=== PATIENT | male | born 1980 | race Caucasian/White ===

== ENCOUNTER 2018-03-06 16:03 | Emergency (ER) | payer BC, OTHER ==
--- NOTE | 2018-03-06 16:05 | ER Report ---
History and Physical Time Seen By MD: 16:05 HPI/ROS CHIEF COMPLAINT: cough, fever HISTORY OF PRESENT ILLNESS: Pt daughter and have been sick. Pt started with symptoms on . Pt states on had headache, fever and chils. Pt states yesterday started with productive cough and wheezing. pt has asthma. had been using his rescue inhaler and advair disc. Pt having trouble sleeping at night due to cough. Pts has been making him green tea at night since he feels the caffiene helps with his cough and wheezing. Pt went to [facility] urgent care yesterday and was given dexamethasone 8mg which he just took today. Pt not feeling any better. Using motrin 400mg for symptoms of fever and chills. Last dose was 130pm. REVIEW OF SYSTEMS: Constitutional: + fever, + chills. Eyes: No discharge. ENT: No sore throat. Cardiovascular: No chest pain, no palpitations. Respiratory: + cough, + shortness of breath. Gastrointestinal: No abdominal pain, no vomiting. Genitourinary: No hematuria. Musculoskeletal: No back pain. Skin: No rashes. Neurological: + headache. Allergies: Coded Allergies: shellfish derived (Verified Allergy, Severe, 03/06/18) Home Meds Reported Medications Albuterol Sulfate (VENTOLIN HFA) 18 Gm Inh, 1-2 PUFF INH 3-4XD, INH 03/06/18 Fluticasone/Salmeterol (ADVAIR 250-50 DISKUS) 1 Each Disk.w.dev, 1 EACH IH QDAY 03/06/18 Losartan/Hydrochlorothiazide (LOSARTAN-HCTZ 100-12.5 MG TAB) 1 Each Tablet, 1 EACH PO QDAY 03/06/18 Past Medical/Surgical History pmhx: asthma, htn Pshx; noncontribuitory Reviewed Nurses Notes: Yes Hx Smoking: No Hx Alcohol Use: Yes (rarely) Constitutional Vital Sign - Last 24 Hours 03/06/18 03/06/18 03/06/18 16:08 16:26 16:26 Temp 99.6 Pulse 97 96 Resp 24 18 B/P (MAP) 142/84 Pulse Ox 93 94 O2 Delivery Room Air Room Air Physical Exam General Appearance: The patient is alert, has no immediate need for airway protection and no signs of toxicity. Eyes: Pupils equal and round no pallor or injection, EOMI ENT: no pharyngeal erythema or exudates, Mucous membranes are moist, TM are nl b/l Respiratory: There are no retractions, + rhonchi b/l with Cardiovascular: Regular rate and rhythm. pulses are equal and symmetrical Gastrointestinal: Abdomen is soft and non tender, no masses, bowel sounds normal, no guarding, no rigidity or rebound Neurological: Cranial nerves II-XII grossly intact, no sensory or motor loss Skin: Warm and dry, no rashes. Musculoskeletal: Neck is supple non tender, no vertebral tenderness Extremities are nontender, non swollen and have full range of motion. DIFFERENTIAL DIAGNOSIS: After history and physical exam differential diagnosis was considered for bronchitis, allergic rhinitis, pneumonia Medical Decision Making ED Course/Re-evaluation ED Course Check xray 03/06/2018 4:55:18 pm PT feeling much better after the breathing treatment. Decision to Disposition Date: Mar 06, 2018 Decision to Disposition Time: 16:55 Depart Departure Latest Vital Signs Vital Signs Date Time Temp Pulse Resp B/P (MAP) Pulse Ox O2 Delivery O2 Flow Rate FiO2 03/06/18 16:26 96 18 03/06/18 16:26 94 Room Air 03/06/18 16:08 99.6 142/84 Impression: Primary Impression: Bronchitis Condition: Improved Disposition: HOME OR SELF-CARE Referrals: ABHISHEK SERRANO (PCP) 2 Days New Scripts Promethazine HCl/Codeine (Prometh-Codein 6.25-10 mg/5 ml) 5 Ml Syrup 5 MG PO Q4-6H Y for COUGH, #120 ML Prov: ERIC PARKER DO 03/06/18 Azithromycin (Z-PACK) 250 Mg Tablet 250 MG PO QDAY, #6 DOSE-PACK 2 pills today then one pill once a day for 4 days. Prov: ERIC PARKER DO 03/06/18 Patient Instructions: Acute Bronchitis (GEN) Additional Instructions: Zithromax 500mg once a day today then 250mg once a day starting tomorrow. Phenergan with codiene one tsp every 4 hours as needed for cough. You can use your rescue inhaler 2 puffs every 4 hours as needed for cough, wheeze or shortness of breath. Follow up with your family doctor. Return as needed. ERIC PARKER DO Mar 06, 2018 16:05
[2018-03-06] MEDS ORDERED: LOSA-57 PO (16:16)
[2018-03-06] MEDS ORDERED: ALB18R INH (16:16)
[2018-03-06] MEDS ORDERED: FLUT1DIS28 IH (16:16)
[2018-03-06] MEDS ORDERED: ACETAMINOPHEN 325 MG TAB PO ONE (16:20)
[2018-03-06] MEDS ORDERED: CHLORPH/HYDROCOD SUSP CR 5 ML PO ONE (16:20)
[2018-03-06] MEDS ORDERED: ALBUTEROL/IPRATROPIUM 3 ML NEB NEB ONE (16:25)
--- NOTE | 2018-03-06 16:45 | RADIOLOGY IMAGING REPORT ---
FACILITY: [facility] PATIENT NAME: Kolton Bethea : 1980 MR: [id number] V: [id number] EXAM DATE: ORDERING PHYSICIAN: ERIC PARKER [place]CHN[place] [facility] [place] Kolton Bet[place] : 1980 Visit/Account:[id number] Date of Sevice: 03/06/2018 Technique: CHEST PA AND LAT HISTORY: cough, fever Comparison studies: None FINDINGS: Noted are linear right middle lobe and left lower lobe opacities. Prominence of the centra l bronchopulmonary vasculature as well as central peribronchial thickening is noted. The cardiac janeth houette is unremarkable. IMPRESSION: 1. Multilobar linear opacities likely representing atelectasis and/or scarring. 2. Mild prominence of the central bronchopulmonary vasculature as well as central peribronchial thic kening. These findings can be seen in the setting of bronchitis, asthma or tobacco usage. Report Dictated By: Soren Bolden DO at 03/06/2018 4:38 PM Report E-Signed By: Soren Bolden DO at 03/06/2018 4:41 PM WSN:[id number]
[2018-03-06] MEDS ORDERED: AZIT-17 PO (16:58)
[2018-03-06] MEDS ORDERED: PROM5SYR PO (16:58)
[2018-03-06 17:02] VITALS: BP 123/75
== END 2018-03-06 17:07 | disposition home or self-care (01) ==
LOC: ER 16:07
DX: J40 Bronchitis, not specified as acute or chronic (principal)
CPT/HCPCS: 71046; 94640; 99283; J7620